=== PATIENT | female | born 1945 | race Caucasian/White ===

== ENCOUNTER 2016-11-08 15:15 | Outpatient (CLI) | payer MEDICARE, OTHER | END 2016-11-08 15:16 | DX: N30.01 Acute cystitis with hematuria (principal) ==

== ENCOUNTER 2017-01-13 08:26 | Outpatient (CLI) | payer MEDICARE, OTHER ==
[2017-01-13 13:53] LABS: BASOPHILS # (AUTO) 0.1 10^3/uL (0.0-0.1); BASOPHILS % (AUTO) 0.9 %; EOSINOPHILS # (AUTO) 0.3 10^3/uL (0.0-0.7); EOSINOPHILS % (AUTO) 5.4 %; HCT - HEMATOCRIT 42.8 % (37.0-47.0); HGB - HEMOGLOBIN 14.2 g/dL (12.0-16.0); LYMPHOCYTES # (AUTO) 1.8 10^3/uL (1.5-3.5); LYMPHOCYTES % (AUTO) 27.8 %; MEAN CORPUSCULAR HEMOGLOBIN 32.3 pg (27.0-31.0); MEAN CORPUSCULAR HGB CONC 33.1 g/dL (32.0-36.0); MEAN CORPUSCULAR VOLUME 97.4 fL (81.0-99.0); MEAN PLATELET VOLUME 10.2 fL (7.9-10.8); MONOCYTES # (AUTO) 0.6 10^3/uL (0.0-1.0); MONOCYTES % (AUTO) 9.2 %; NEUTROPHILS # (AUTO) 3.6 10^3/uL (1.5-6.6); NEUTROPHILS % (AUTO) 56.7 %; NUCLEATED RED BLOOD CELLS AUTO 0.1 /100WBC; RED BLOOD COUNT 4.39 10^6/uL (4.20-5.40); UNCORRECTED WHITE BLOOD COUNT 6.3 x10^3/uL; WHITE BLOOD COUNT 6.3 x10^3/uL (4.8-10.8)
[2017-01-13 14:11] LABS: ALBUMIN/GLOBULIN RATIO 1.3 (1.0-2.2); BILIRUBIN,TOTAL 0.6 mg/dL (0.2-1.0); BUN - BLOOD UREA NITROGEN 24 mg/dL (6-20); CALCIUM 9.2 mg/dL (8.5-10.3); CARBON DIOXIDE - CO2 27 mmol/L (21-32); CHLORIDE 103 mmol/L (101-111); CHOL/HDL RATIO 2.6 (<4.4); CHOLESTEROL 232 mg/dL; CREATININE 0.7 mg/dL (0.4-1.0); GFR - MDRD 82 (>89); GLUCOSE 80 mg/dL (70-100); HDL CHOLESTEROL 88 mg/dL; LDL/HDL RATIO 1.5 (<4.4); POTASSIUM 3.9 mmol/L (3.5-5.0); SODIUM 138 mmol/L (135-145); TRIGLYCERIDES 69 mg/dL; VLDL CHOLESTEROL 14 mg/dL
== END 2017-01-13 08:27 | disposition home or self-care (01) ==
LOC: LAB.R 08:26
PROVIDERS: ATTEND Nurse Practitioner Primary Care
DX: M81.0 Age-related osteoporosis without current pathological fracture (principal); Z79.899 Other long term (current) drug therapy
CPT/HCPCS: 80053; 80061; 84443; 85025

== ENCOUNTER 2017-01-25 13:02 | Outpatient (CLI) | payer MEDICARE, OTHER ==
--- NOTE | 2017-01-26 08:39 | DEXA Report ---
DEXA SCAN: 01/25/2017 CLINICAL INDICATION: Postmenopausal. TECHNIQUE: Dual energy x-ray absorptiometry (DXA) was performed on a [employer] system. Regions measured are the AP spine, femoral neck, and, if needed, forearm. COMPARISON: None. In accordance with the International Society for Clinical Densitometry (ISCD) guidelines, data from previous exams may be reanalyzed using current recommendations and techniques. This is done to allow a more accurate basis for comparison with the current study. FINDINGS: The data for the lumbar spine is as follows: REGION BMD (g/cm/cm) T-SCORE Z-SCORE L1 0.833 -2.5 -1.0 L2 0.952 -2.1 -0.6 L3 1.051 -1.2 0.3 L4 0.937 -2.2 -0.7 TOTAL 0.943 -2.0 -0.5 NOTE: All evaluable vertebrae are used for classification. The data for the hip is as follows: REGION BMD (g/cm/cm) T-SCORE Z-SCORE Neck 0.777 -1.9 -0.2 TOTAL 0.818 -1.5 0.0 NOTE: The femoral neck or total proximal femur, whichever is lowest, is used for classification. IMPRESSION: THE WHO CLASSIFICATION BASED ON THE INTERNATIONAL REFERENCE STANDARD IS OSTEOPENIA. THE FRACTURE RISK IS INCREASED. RECOMMENDATION: Patients with diagnosis of osteoporosis or osteopenia should have regular bone mineral density assessment. For those eligible for Medicare, routine testing is allowed once every 2 years. Testing frequency can be increased for patients who have rapidly progressing disease or for those who are receiving medical therapy to restore bone mass. COMMENT: World Health Organization (WHO) definitions for osteoporosis and osteopenia: NORMAL BMD: T-score at -1.0 or higher, fracture risk is low. OSTEOPENIA BMD: T-score between -1.0 and -2.5, fracture risk is increased. OSTEOPOROSIS BMD: T-score at -2.5 or lower, fracture risk high. National Osteoporosis Foundation recommends: 1. Obtain adequate dietary calcium (at least 1200 mg per day) and vitamin D (400 -800 international units per day). 2. Participate, as appropriate, in regular weightbearing and muscle- strengthening exercise. 3. Avoid tobacco use and reduce alcohol and caffeine intake. 4. For more detailed information see the website at www.NOF.org. MTDD
== END 2017-01-25 13:03 | disposition home or self-care (01) ==
LOC: DI 13:02
PROVIDERS: ATTEND Nurse Practitioner Primary Care
DX: M85.89 Other specified disorders of bone density and structure, multiple sites (principal); Z78.0 Asymptomatic menopausal state
CPT/HCPCS: 77080

== ENCOUNTER 2017-02-09 14:23 | Outpatient (CLI) | payer MEDICARE, OTHER ==
--- NOTE | 2017-02-10 20:10 | Mammography Report ---
DIGITAL SCREENING MAMMOGRAM: 02/09/2017 CLINICAL INDICATION: A 71-year-old nulliparous patient with personal history of right breast cancer, status post lumpectomy and radiation therapy. COMPARISON: 11/2014, 11/2013, 05/2013, 10/2012, 03/2012, 09/2011, 02/2011, 12/2010 TECHNIQUE: Routine CC and MLO projections were obtained of the breasts. FINDINGS: The breasts again demonstrate heterogeneously dense fibroglandular parenchyma bilaterally. Postoperative and post-treatment changes in the right breast are stable. Coarse and punctate, typi lo benign calcifications are present. No suspicious masses, clustered microcalcifications, or reg ions of architectural distortion are identified. IMPRESSION: BENIGN FINDINGS. RECOMMENDATION: Routine annual screening unless otherwise clinically indicated. BIRADS CATEGORY 2 - BENIGN FINDINGS. STANDARD QUALIFYING STATEMENTS 1. This examination was reviewed with the aid of Computer-Aided Detection (CAD). 2. A negative or benign imaging report should not delay biopsy if clinically suspicious findings are present. Consider surgical consultation if warranted. More than 5% of cancers are not identified by i maging. 3. Dense breasts may obscure an underlying neoplasm. JOB #: [id number] EXT JOB #:[id number]
== END 2017-02-09 14:24 | disposition home or self-care (01) ==
LOC: DI 14:23
PROVIDERS: ATTEND Nurse Practitioner Primary Care
DX: Z12.31 Encounter for screening mammogram for malignant neoplasm of breast (principal); Z85.3 Personal history of malignant neoplasm of breast
CPT/HCPCS: 77067

== ENCOUNTER 2017-10-08 11:18 | Emergency (ER) | payer MEDICARE, OTHER ==
[2017-10-08] MEDS ORDERED: oxyCODONE 5 MG TABLET PO STA (11:42)
--- NOTE | 2017-10-08 12:12 | ED Physician Documentation ---
PD HPI UPPER EXT INJURY - Stated complaint Stated Complaint: GLF/R WRIST INJ - Chief complaint Chief Complaint: Ext Problem - History obtained from History obtained from: Patient - History of Present Illness Location: Right, Wrist Type of injury: Fall Timing - onset: Today Timing - details: Abrupt onset, Still present Improved by: No: Rest Worsened by: Moving, Palpating Associated symptoms: Swelling. No: Weakness, Numbness Contributing factors: No: Prior ortho surgery Similar symptoms before: Has not had sx before Recently seen: Not recently seen Review of Systems Skin: reports: Abrasion (s) (forearm and ulnar side wrist, superficial). denies : Laceration (s) Neurologic: denies: Focal weakness, Numbness, Headache, Head injury PD PAST MEDICAL HISTORY - Past Medical History Past Medical History: Yes Cardiovascular: Murmur Respiratory: Sleep apnea Endocrine/Autoimmune: HyPOthyroidism GI: None : None HEENT: None Psych: Depression, Anxiety Musculoskeletal: Osteoarthritis, Osteoporosis, Osteopenia, Chronic back pain Derm: None - Past Surgical History Past Surgical History: Yes General: Other Ortho: Arthroscopic surgery, Other HEENT: Tonsil/Adenoidectomy - Present Medications Home Medications: Ambulatory Orders Medication Instructions Recorded Confirmed Naproxen [Aleve] 220 mg PO BID 11/27/13 06/18/15 Levothyroxine [Synthroid] 50 mcg PO QDAC 06/16/15 06/18/15 lamoTRIgine [LaMICtal] 12 mg PO DAILY 06/16/15 06/18/15 Aspirin 81 mg PO 10/08/17 HYDROcod/ACETAM 5/325 [[place] 5/325] 1 tab PO Q6H PRN #15 tablet 10/08/17 - Allergies Allergies/Adverse Reactions: Allergies Allergy/AdvReac Type Severity Reaction Status Date / Time acetaminophen AdvReac Mild Headache Verified 10/08/17 11:29 - Social History Does the pt smoke?: No Smoking Status: Never smoker Does the pt drink ETOH?: No Does the pt have substance abuse?: No - Immunizations Immunizations are current?: Yes PD ED PE NORMAL - Vitals Vital signs reviewed: Yes - General General: Alert and oriented X 3, Well developed/nourished - HEENT HEENT: Atraumatic - Neck Neck: Supple, no meningeal sign, No bony TTP - Cardiac Cardiac: RRR, No murmur - Respiratory Respiratory: Clear bilaterally - Abdomen Abdomen: Soft, Non tender - Back Back: No CVA TTP, No spinal TTP - Derm Derm: Normal color, Warm and dry - Extremities Extremities: Other (right wrist with swelling and tenderness, slight dorsal deformity. superficial abrasion ulnar side wrist and forearm. CLeansed. ) Results - Vitals Vitals: Oxygen O2 Source Room air - Rads (name of study) right wrist Radiology: Prelim report reviewed (distal radius fracture with some dorsal angulation. ) Procedures - Splint (location) wrist Splint applied by: Physician Type of splint: Fiberglass, Sugar tong Other: Patient tolerated well, No complications, Neurovascular intact, Sling provided PD MEDICAL DECISION MAKING - ED course Complexity details: reviewed results, re-evaluated patient (hematoma block with Marcaine provided significant relief of the pain. Comfortable with sitting and splinting. Able to do slight reduction volarly as applied splint. ), considered differential, d/w patient, d/w [facility] consultant (Dr. Brown - advised just splint and refer to office. ) Departure - Departure Disposition: 01 Home, Self Care Clinical Impression: Fall from slip, trip, or stumble Qualifiers: Encounter type: initial encounter Qualified Code(s): W01.0XXA - Fall on same level from slipping, tripping and stumbling without subsequent striking against object, initial encounter Wrist fracture Qualifiers: Encounter type: initial encounter Fracture type: closed Laterality: right Qualified Code(s): S62.101A - Fracture of unspecified carpal bone, right wrist, initial encounter for closed fracture Condition: Stable Record reviewed to determine appropriate education?: Yes Instructions: ED Fx Colles Wrist Redu Requ Follow-Up: Alexander Cuba MD [Primary Care Provider] - Johnie Yu MD [Provider Admit Priv/Credential] - Prescriptions: HYDROcod/ACETAM 5/325 [[place] 5/325] 1 tab PO Q6H PRN #15 tablet PRN Reason: Pain Comments: Keep the right wrist splint on and supported and use the sling for elevating the wrist. Keep her propped up on a pillow and ice periodically to help reduce swelling as well. It will likely need a little more reduction at the time of casting. The orthopedist will do this in their office on follow-up. We initially splint fractures like this because it will likely have some swelling we do not want the cast to be too tight. Call Monday for an appointment with orthopedics and likely they will see her at the end of the week and change this to a cast and talked to her about further care. I do not think it needs surgery but it will depend a little bit on what the orthopedist thinks about that piece on the corner. Use Tylenol or ibuprofen if needed for pains. Add hydrocodone if needed for worse pain. Discharge Date/Time: 10/08/17 14:05
[2017-10-08] MEDS ORDERED: BUPIVACAINE 0.5% PF 30 ML VIAL SUBQ STA (12:18)
--- NOTE | 2017-10-08 12:20 | XRAY Report ---
EXAM: RIGHT WRIST RADIOGRAPHY EXAM DATE: 10/08/2017 12:03 PM. CLINICAL HISTORY: Fall injury. COMPARISON: None. TECHNIQUE: 4 views. FINDINGS: Bones: Acute transverse fracture distal right radial metaphysis with marked dorsal angulation. There is also a minimally displaced oblique fracture through the base of the radial styloid. There is a tin y avulsion fracture at the tip of the volar styloid. Carpal bones appear intact. Nondisplaced transve rse fracture through the base of the right fifth metacarpal. Diffuse osteopenia. Joints: Moderate narrowing and osteophyte formation at the first carpal metacarpal joint. Soft Tissues: Normal. No soft tissue swelling. IMPRESSION: 1. Transverse fracture distal right radial metaphysis with marked dorsal angulation. There is also a minimally displaced oblique fracture through the base of the radial styloid. 2. Tiny avulsion fracture from the tip of the ulnar styloid. 3. Nondisplaced transverse fracture through the base of the right fifth metacarpal. 4. Diffuse osteopenia. 5. Moderate osteoarthritis at the right first carpometacarpal joint. [facility] Referring Provider Line: [phone] SITE ID: [id number]
[2017-10-08] MEDS ORDERED: ONDANSETRON ODT 4 MG TABLET TL STA (12:28)
[2017-10-08] MEDS ORDERED: KETOROLAC 60 MG/2 ML VIAL IM STA (12:28)
[2017-10-08] MEDS ORDERED: HYDROmorphone 1 MG/ML SYRINGE IM STA (12:28)
[2017-10-08] MEDS ORDERED: BUPIVACAINE 0.5% PF 10 ML VIAL SUBQ STA (12:28)
[2017-10-08 14:13] VITALS: BP 150/70
== END 2017-10-08 14:05 | disposition home or self-care (01) ==
LOC: ED 11:18
DX: S62.101A Fracture of unspecified carpal bone, right wrist, initial encounter for closed fracture (principal); W01.0XXA Fall on same level from slipping, tripping and stumbling without subsequent striking against object, initial encounter; E03.9 Hypothyroidism, unspecified; M85.80 Other specified disorders of bone density and structure, unspecified site
CPT/HCPCS: 29105; 73110; 96372; 99283; A9270; J1170; Q0162

== ENCOUNTER 2018-02-19 08:00 | Outpatient (CLI) | payer MEDICARE, OTHER ==
[2018-02-19 14:05] LABS: BASOPHILS # (AUTO) 0.1 10^3/uL (0.0-0.1); BASOPHILS % (AUTO) 1.3 %; EOSINOPHILS # (AUTO) 0.2 10^3/uL (0.0-0.7); EOSINOPHILS % (AUTO) 3.5 %; HGB - HEMOGLOBIN 14.2 g/dL (12.0-16.0); LYMPHOCYTES # (AUTO) 1.6 10^3/uL (1.5-3.5); LYMPHOCYTES % (AUTO) 30.2 %; MEAN CORPUSCULAR HEMOGLOBIN 32.1 pg (27.0-31.0); MEAN CORPUSCULAR HGB CONC 32.8 g/dL (32.0-36.0); MEAN CORPUSCULAR VOLUME 98.2 fL (81.0-99.0); MEAN PLATELET VOLUME 10.7 fL (7.9-10.8); MONOCYTES # (AUTO) 0.5 10^3/uL (0.0-1.0); MONOCYTES % (AUTO) 9.3 %; NEUTROPHILS # (AUTO) 2.9 10^3/uL (1.5-6.6); NEUTROPHILS % (AUTO) 55.7 %; PLT - PLATELET COUNT 246 10^3/uL (130-450); RED BLOOD COUNT 4.42 10^6/uL (4.20-5.40); RED CELL DISTRIBUTION WIDTH 13.5 % (12.0-15.0); WHITE BLOOD COUNT 5.2 x10^3/uL (4.8-10.8)
[2018-02-19 14:06] LABS: ALBUMIN 3.9 g/dL (3.2-5.5); ALBUMIN/GLOBULIN RATIO 1.3 (1.0-2.2); ALKALINE PHOSPHATASE 45 IU/L (42-121); ALT ALANINE AMINOTRANSFERASE 17 IU/L (10-60); AST ASPARTATE AMINOTRANSFERASE 24 IU/L (10-42); BUN - BLOOD UREA NITROGEN 25 mg/dL (6-20); CALCIUM 9.1 mg/dL (8.5-10.3); CARBON DIOXIDE - CO2 26 mmol/L (21-32); CHLORIDE 102 mmol/L (101-111); CHOL/HDL RATIO 2.6 (<4.4); CHOLESTEROL 228 mg/dL; CREATININE 0.7 mg/dL (0.4-1.0); GFR - MDRD 82 (>89); GLUCOSE 84 mg/dL (70-100); HDL CHOLESTEROL 87 mg/dL; LDL CHOLESTEROL,CALCULATED 130 mg/dL; LDL/HDL RATIO 1.5 (<4.4); SODIUM 137 mmol/L (135-145); TOTAL PROTEIN 6.9 g/dL (6.7-8.2); VLDL CHOLESTEROL 11 mg/dL
== END 2018-02-19 08:01 | disposition home or self-care (01) ==
LOC: LAB.R 08:00
PROVIDERS: ATTEND Physician Assistant Medical
DX: M81.0 Age-related osteoporosis without current pathological fracture (principal); Z79.899 Other long term (current) drug therapy; F32.9 Major depressive disorder, single episode, unspecified; E03.9 Hypothyroidism, unspecified
CPT/HCPCS: 80053; 80061; 82306; 83721; 84443; 85025

== ENCOUNTER 2018-02-19 08:00 | Outpatient (CLI) | payer MEDICARE, OTHER | END 2018-02-19 08:01 | disposition home or self-care (01) | LOC: LAB.R 08:00 | PROVIDERS: ATTEND Physician Assistant Medical | DX: Z53.9 Procedure and treatment not carried out, unspecified reason (principal) | CPT/HCPCS: 80053; 80061; 82306; 83721; 84443; 85025 ==

== ENCOUNTER 2018-05-03 12:59 | Outpatient (CLI) | payer MEDICARE, OTHER ==
--- NOTE | 2018-05-07 15:47 | Mammography Report ---
Reason: BILAT SCREEN w EDEN Procedure Date: 05/03/2018 Accession Number: [id number] / [id number] Procedure: DENNIS - Screening Mammo w/[facility] CPT Code: FULL RESULT: EXAM: Screening Mammo w/[place] DATE: 05/03/2018 1:50 PM CLINICAL HISTORY: 72 year-old nulliparous female with personal history of breast cancer on the right status post lumpectomy and radiation. TECHNIQUE: Bilateral CC and MLO views were obtained. A cleavage view was also obtained COMPARISON: 02/09/2017, 12/02/2015, 12/04/2014, 12/06/2013. FINDINGS: The breasts demonstrate heterogeneously dense fibroglandular parenchyma bilaterally. Right breast postsurgical changes are stable. Large rodlike typically benign calcifications are seen in the left breast. No suspicious masses, clustered microcalcifications, or regions of architectural distortion are identified. IMPRESSION: Benign findings RECOMMENDATION: Routine annual screening unless otherwise clinically indicated. BIRADS CATEGORY 2: Benign findings STANDARD QUALIFYING STATEMENTS: 1. This examination was not reviewed with the aid of Computer-Aided Detection (CAD). 2. A negative or benign imaging report should not delay biopsy if clinically suspicious findings are present. Consider surgical consultation if warrented. More than 5% of cancers are not identified by imaging. 3. Dense breasts may obscure an underlying neoplasm. 4. This examination was reviewed with the aid of 3D breast imaging (tomosynthesis).
== END 2018-05-03 13:00 | disposition home or self-care (01) ==
LOC: DI 12:59
PROVIDERS: ATTEND Physician Assistant Medical
DX: Z12.31 Encounter for screening mammogram for malignant neoplasm of breast (principal); Z85.3 Personal history of malignant neoplasm of breast
CPT/HCPCS: 77063; 77067

== ENCOUNTER 2018-06-19 16:37 | Outpatient (CLI) | payer MEDICARE, OTHER ==
--- NOTE | 2018-06-20 09:41 | XRAY Report ---
Reason: CERVICAL DISC DISORDER/W/RADICULOPATHY,BACK PAIN Procedure Date: 06/19/2018 Accession Number: [id number] / [id number] Procedure: XR - SI Joints CPT Code: FULL RESULT: EXAM: SACROILIAC JOINT RADIOGRAPHY EXAM DATE: 06/19/2018 05:10 PM. CLINICAL HISTORY: Cervical disk disorder with radiculopathy, and back pain. COMPARISON: XR HIP UNILAT MIN 2 VIEW 08/21/2009 9:14 AM. TECHNIQUE: 3 views. FINDINGS: For findings of the lumbar spine, please refer to the separate report. Bones: Normal. No fracture or bone lesion. Joints: The sacroiliac joints are normal. Soft Tissues: Normal. IMPRESSION: Normal sacroiliac joint radiography. [facility]
--- NOTE | 2018-06-20 09:41 | XRAY Report ---
Reason: CERVICAL DISC DISORDER/W/RADICULOPATHY,BACK PAIN Procedure Date: 06/19/2018 Accession Number: [id number] / [id number] Procedure: XR - Lumbar Spine Complete CPT Code: FULL RESULT: EXAM: LUMBOSACRAL SPINE RADIOGRAPHY EXAM DATE: 06/19/2018 05:08 PM. CLINICAL HISTORY: Cervical disk disorder and radiculopathy, back pain. COMPARISONS: Lumbosacral spine 4 views 10/21/2009. TECHNIQUE: 4 views. FINDINGS: S-shaped lumbar scoliosis has progressed compared to 10/21/2009 in the form of an L2 centric dextroconvex scoliosis followed by L4 centric levoconvex scoliosis and severe associated degenerative changes. There is a lateral listhesis, 4 mm of L3 on L4, likely degenerative in nature. There is generally severe facet arthropathy of the lower lumbar spine. IMPRESSION: Interval progression of degenerative S-shaped scoliosis spine, severe. [facility]
--- NOTE | 2018-06-20 10:18 | XRAY Report ---
Reason: CERVICAL DISC DISORDER/W/RADICULOPATHY,BACK PAIN Procedure Date: 06/19/2018 Accession Number: [id number] / [id number] Procedure: XR - Cervical Spine Complete CPT Code: FULL RESULT: EXAM: CERVICAL SPINE RADIOGRAPHY EXAM DATE: 06/19/2018 05:11 PM. CLINICAL HISTORY: Cervical disk disorder with radiculopathy, back pain. COMPARISONS: None. TECHNIQUE: 5 views. FINDINGS: Alignment: Normal. No spondylolisthesis or scoliosis. Bones: The cervical vertebral bodies and posterior elements are well-visualized from the skull base through C7-T1. No fractures or bone lesions. Disks: There is moderate multilevel disk space narrowing most pronounced at C4-C5 and C5-C6. Facets: There is sclerosis of the lateral masses and facets which is most pronounced from C5 to C7. Neural Foramina: The neural foramina have bony patency bilaterally. Soft Tissues: Normal. No prevertebral soft tissue swelling. The visualized lung apices are clear. IMPRESSION: Degenerative changes as described. [facility]
== END 2018-06-19 16:38 | disposition home or self-care (01) ==
LOC: DI 16:37
PROVIDERS: ATTEND Physician Assistant Medical
DX: M50.31 Other cervical disc degeneration, high cervical region (principal); M47.9 Spondylosis, unspecified
CPT/HCPCS: 72050; 72110; 72202

== ENCOUNTER 2019-04-04 09:44 | Outpatient (CLI) | payer MEDICARE, OTHER ==
[2019-04-04 10:16] LABS: ALBUMIN/GLOBULIN RATIO 1.3 (1.0-2.2); BILIRUBIN,TOTAL 0.8 mg/dL (0.2-1.0); CREATININE 0.8 mg/dL (0.4-1.0)
[2019-04-04 12:48] LABS: THYROID STIMULATING HORMONE 1.61 uIU/mL (0.34-5.60)
[2019-04-04 12:51] LABS: FREE T4 (FREE THYROXINE) 1.15 ng/dL (0.58-1.64)
== END 2019-04-04 09:45 | disposition home or self-care (01) ==
LOC: LAB 09:44
PROVIDERS: ATTEND Physician Assistant
DX: E03.9 Hypothyroidism, unspecified (principal)
CPT/HCPCS: 36415; 80053; 84439; 84443

== ENCOUNTER 2019-04-12 10:21 | Outpatient (CLI) | payer MEDICARE, OTHER ==
--- NOTE | 2019-04-15 13:35 | DEXA Report ---
Reason: DISORDER OF BONE,UNSPECIFIED Procedure Date: 04/12/2019 Accession Number: [id number] / [id number] Procedure: DEX - Dexa Spine and/or Hip CPT Code: FULL RESULT: EXAM: Dexa Spine and/or Hip DATE: 04/12/2019 11:30 AM CLINICAL HISTORY: Follow-up osteopenia TECHNIQUE: Dual energy x-ray absorptiometry (DXA) was performed on a [employer]. Regions measured are the AP Spine, femoral neck, and if needed forearm. COMPARISON: 01/25/2017 In accordance with the International Society for Clinical Densitometry (ISCD) guidelines, data from previous exams may be reanalyzed using current recommendations and techniques. This is done to allow a more accurate basis for comparison with the current study. FINDINGS: The data for the lumbar spine is as follows: BMD (g/cm/cm) T-SCORE Z-SCORE REGION L1 0.790 -2.8 -1.3 L2 0.885 -2.6 -1.1 L3 1.092 -0.9 0.7 L4 0.938 -2.2 -0.6 TOTAL 0.929 -2.1 -0.5 NOTE: All evaluable vertebrae are used for classification The data for the hip is as follows: BMD (g/cm/cm) T-SCORE Z-SCORE REGION Neck 0.763 -2.0 -0.2 TOTAL 0.814 -1.5 0.1 NOTE: The femoral neck or total proximal femur, whichever is lowest, is used for classification. DXA RESULTS SUMMARY: Spine SCAN DATE AGE BMD CHANGE VS CHANGE VS PREVIOUS PREVIOUS % [birth year]12[birth year]2019 [age] 0.929 -0.014 -1.5 01/25/2017 [age] 0.943 * Denotes significant change at the 95% confidence level. Denotes dissimilar scan types or analysis methods. DXA RESULTS SUMMARY: Hip SCAN DATE [age]GE BMD CHANGE VS CHANGE VS PREVIOUS PREVIOUS % [birth year]2019 [age] 0.814 -0.004 -0.5 01/25/2017 [age] 0.818 * Denotes significant change at the 95% confidence level. Denotes dissimilar scan types or analysis methods. IMPRESSION: THE WHO CLASSIFICATION BASED ON THE INTERNATIONAL REFERENCE STANDARD IS OSTEOPENIA REFERENCE LUMBAR SPINE. THE FRACTURE RISK IS INCREASED. RECOMMENDATION: Patients with diagnosis of osteoporosis or osteopenia should have regular bone mineral density assessment. For those eligible for Medicare, routine testing is allowed once every 2 years. Testing frequency can be increased for patients who have rapidly progressing disease or for those who are receiving medical therapy to restore bone mass. COMMENT: World Health Organization (WHO) definitions for osteoporosis and osteopenia: NORMAL BMD: T-score at -1.0 or higher, fracture risk is low OSTEOPENIA BMD: T-score between -1.0 and -2.5, fracture risk is increased. OSTEOPOROSIS BMD: T-score at -2.5 or lower, fracture risk is high. National Osteoporosis Foundation recommends: 1. Obtain adequate dietary calcium (at least 1200 mg per day) and vitamin D (400-800 international units per day). 2. Participate, as appropriate, in regular weightbearing and muscle-strengthening exercise. 3. Avoid tobacco use and reduce alcohol and caffeine intake. 4. For more detailed information see the website at www.NOF.org.
== END 2019-04-12 10:22 | disposition home or self-care (01) ==
LOC: DI 10:21
PROVIDERS: ATTEND Physician Assistant
DX: M85.89 Other specified disorders of bone density and structure, multiple sites (principal)
CPT/HCPCS: 77080

== ENCOUNTER 2019-05-03 16:15 | Outpatient (CLI) | payer MEDICARE, OTHER ==
--- NOTE | 2019-05-03 17:02 | Mammography Report ---
Reason: SCREENING MAMMO Procedure Date: 05/03/2019 Accession Number: [id number] / [id number] Procedure: DENNIS - Screening Mammo w/Mike CPT Code: FULL RESULT: EXAM: Screening Mammo w/Mike DATE: 05/03/2019 4:39 PM CLINICAL HISTORY: Screening examination. Personal history of right breast cancer with lumpectomy in 2010 or 2011. TECHNIQUE: (B) - Bilateral CC and MLO views were obtained. COMPARISON: 05/03/2018, 02/09/2017, 12/03/2015 PARENCHYMAL PATTERN: (A) - The breasts demonstrate scattered fibroglandular densities bilaterally. FINDINGS: Stable long-standing treatment related posterior lateral hemisphere architectural distortion of the right breast. Otherwise, there are no suspicious masses, calcifications, or areas of distortion. IMPRESSION: Benign findings. BI-RADS category 2. RECOMMENDATION: (ANNUAL) - Recommend routine annual screening mammography. BI-RADS CATEGORY: (2) - Benign Findings. STANDARD QUALIFYING STATEMENTS: 1. This examination was not reviewed with the aid of Computer-Aided Detection (CAD). 2. A negative or benign imaging report should not preclude biopsy if clinically suspicious findings are present. 3. Dense breasts may obscure an underlying neoplasm. 4. This examination was reviewed with the aid of 3D breast imaging (tomosynthesis).
== END 2019-05-03 16:16 | disposition home or self-care (01) ==
LOC: DI 16:15
PROVIDERS: ATTEND Physician Assistant
DX: Z12.31 Encounter for screening mammogram for malignant neoplasm of breast (principal); Z08 Encounter for follow-up examination after completed treatment for malignant neoplasm; Z85.3 Personal history of malignant neoplasm of breast
CPT/HCPCS: 77063; 77067

== ENCOUNTER 2019-09-02 10:30 | Emergency (ER) | payer MEDICARE, OTHER ==
[2019-09-02 10:36] VITALS: BP 129/74
[2019-09-02 11:04] LABS: BILIRUBIN,URINE NEGATIVE (NEGATIVE); GLUCOSE, URINE (UA) NEGATIVE (NEGATIVE)
[2019-09-02 11:05] LABS: CLARITY,URINE CLOUDY (CLEAR)
[2019-09-02 11:12] LABS: BACTERIA,URINE Few /HPF (None Seen); SQUAMOUS EPITHELIAL CELL,UR FEW Squamous (<= Few)
--- NOTE | 2019-09-02 12:13 | ED Physician Documentation ---
History of Present Illness - Stated complaint Stated Complaint: FEMALE - Chief complaint Chief Complaint: UTI - Additonal information Additional information: This is a 73-year-old female who presents with urgency, dysuria, and foul-smelli ng urine for the last 4 days. She has a slight amount of suprapubic discomfort that comes and goes. No flank pain, no fever. She rarely gets UTIs. No vomiting, no diarrhea.She otherwise has been feeling well. She has been taking Azo with relief of her symptoms. Review of Systems Constitutional: denies: Fever : reports: Dysuria, Frequency, Hesitancy PD PAST MEDICAL HISTORY - Past Medical History Past Medical History: Yes Cardiovascular: Murmur Respiratory: Sleep apnea Endocrine/Autoimmune: HyPOthyroidism GI: None : None HEENT: None Psych: Depression, Anxiety Musculoskeletal: Osteoarthritis, Osteoporosis, Osteopenia, Chronic back pain Derm: None - Past Surgical History Past Surgical History: Yes General: Other Ortho: Arthroscopic surgery, Other HEENT: Tonsil/Adenoidectomy - Present Medications Home Medications: Ambulatory Orders Medication Instructions Recorded Confirmed Naproxen [Aleve] 220 mg PO BID 11/27/13 06/18/15 Levothyroxine [Synthroid] 50 mcg PO QDAC 06/16/15 06/18/15 lamoTRIgine [LaMICtal] 12 mg PO DAILY 06/16/15 06/18/15 Aspirin 81 mg PO 10/08/17 HYDROcod/ACETAM 5/325 [[place] 5/325] 1 tab PO Q6H PRN #15 tablet 10/08/17 Cephalexin [Keflex] 500 mg PO Q6H 5 Days #20 capsule 09/02/19 - Allergies Allergies/Adverse Reactions: Allergies Allergy/AdvReac Type Severity Reaction Status Date / Time acetaminophen AdvReac Mild Headache Verified 09/02/19 10:32 - Social History Does the pt smoke?: No Smoking Status: Never smoker Does the pt drink ETOH?: No Does the pt have substance abuse?: No - Immunizations Immunizations are current?: Yes PD ED PE NORMAL - Vitals Vital signs reviewed: Yes - General General: Alert and oriented X 3, No acute distress - HEENT HEENT: PERRL - Neck Neck: Supple, no meningeal sign - Cardiac Cardiac: RRR, No murmur - Respiratory Respiratory: Clear bilaterally - Abdomen Abdomen: Soft, Non tender, Non distended - Derm Derm: Warm and dry - Neuro Neuro: Alert and oriented X 3 - Psych Psych: Normal mood, Normal affect Results - Vitals Vitals: Oxygen O2 Source Room air - Labs Labs: Microbiology 09/02/19 10:55 Urine Culture - Preliminary Urine,Random Escherichia Coli Laboratory Tests 09/02/19 10:55 Urine Color ORANGE Urine Clarity CLOUDY Urine pH Ur Specific [place] Urine Protein Urine Glucose (UA) NEGATIVE Urine Ketones Urine Occult Blood Urine Nitrite Urine Bilirubin NEGATIVE Urine Urobilinogen Ur Leukocyte Esterase Urine RBC 11-25 H Urine WBC >25 H Ur Squamous Epith Cells FEW Squamous Urine Bacteria Few Ur Microscopic Review INDICATED Urine Culture Comments INDICATED PD MEDICAL DECISION MAKING - ED course ED course: Pt has UTI symptoms, no signs of pyelonephritis or other more serious illness or complications. UA is consistent with UTI. I prescribed keflex and reviewed return precautions and pt was discharged in very good condition. Departure - Departure Disposition: 01 Home, Self Care Clinical Impression: UTI (urinary tract infection) Qualifiers: Urinary tract infection type: acute cystitis Hematuria presence: without hematuria Qualified Code(s): N30.00 - Acute cystitis without hematuria Condition: Good Instructions: ED UTI Cystitis Female Follow-Up: Thuy Velasquez PA [Primary Care Provider] - As Needed Prescriptions: Cephalexin [Keflex] 500 mg PO Q6H 5 Days #20 capsule Comments: If you are developing flank pain, fever despite the antibiotic, or other concerning symptoms, return to the emergency department Discharge Date/Time: 09/02/19 12:39
[2019-09-02] MEDS ORDERED: cephALEXin 250 MG CAPSULE PO STA (12:30)
== END 2019-09-02 12:39 | disposition home or self-care (01) ==
LOC: ED 10:30
DX: N30.00 Acute cystitis without hematuria (principal)
CPT/HCPCS: 81001; 87086; 87181; 99283; 99284; A9270; 81003

== ENCOUNTER 2020-05-03 10:01 | Emergency (ER) | payer MEDICARE, OTHER ==
[2020-05-03 11:31] LABS: BILIRUBIN,URINE NEGATIVE (NEGATIVE); GLUCOSE, URINE (UA) NEGATIVE (NEGATIVE); KETONES,URINE (UA) NEGATIVE (NEGATIVE); LEUKOCYTE ESTERASE, URINE MODERATE (NEGATIVE); NITRITE,URINE NEGATIVE (NEGATIVE); OCCULT BLOOD,URINE MODERATE (NEGATIVE); PH,URINE 6.5 PH (5.0-7.5); PROTEIN,URINE TRACE mg/dL (NEGATIVE); UROBILINOGEN,URINE 0.2 (NORMAL) E.U./dL (NORMAL)
[2020-05-03 11:55] LABS: CLARITY,URINE SL. CLOUDY (CLEAR)
[2020-05-03] MEDS ORDERED: SULFAMETH/TRIMETH DS 800/160 MG TABLET PO STA (11:59)
--- NOTE | 2020-05-03 12:02 | ED Physician Documentation ---
History of Present Illness - Stated complaint Stated Complaint: FEMALE - Chief complaint Chief Complaint: UTI - History obtained from History obtained from: Patient - Additonal information Additional information: Patient comes emergency department complaining of dysuria and frequency since last night. Patient states she has had many urinary tract infections before and this feels just the same. No fevers or chills. No vomiting. No back pain. No other complaints at this time. Review of Systems Ten Systems: 10 systems reviewed and negative Constitutional: reports: Reviewed and negative Eyes: reports: Reviewed and negative Ears: reports: Reviewed and negative Nose: reports: Reviewed and negative Throat: reports: Reviewed and negative Cardiac: reports: Reviewed and negative Respiratory: reports: Reviewed and negative GI: reports: Reviewed and negative. denies: Abdominal Pain, Nausea, Vomiting : reports: Dysuria, Frequency Skin: reports: Reviewed and negative Musculoskeletal: reports: Reviewed and negative. denies: Back pain Neurologic: reports: Reviewed and negative Psychiatric: reports: Reviewed and negative Endocrine: reports: Reviewed and negative Immunocompromised: reports: Reviewed and negative PD PAST MEDICAL HISTORY - Past Medical History Past Medical History: No Cardiovascular: Murmur Respiratory: None Neuro: None Endocrine/Autoimmune: HyPOthyroidism GI: None : None HEENT: None Psych: Depression, Anxiety Musculoskeletal: Osteoarthritis, Osteoporosis, Osteopenia, Chronic back pain Derm: None - Past Surgical History Past Surgical History: Yes General: Other Ortho: Arthroscopic surgery, Other HEENT: Tonsil/Adenoidectomy - Present Medications Home Medications: Ambulatory Orders Medication Instructions Recorded Confirmed Naproxen [Aleve] 220 mg PO BID 11/27/13 06/18/15 Levothyroxine [Synthroid] 50 mcg PO QDAC 06/16/15 06/18/15 lamoTRIgine [LaMICtal] 12 mg PO DAILY 06/16/15 06/18/15 Aspirin 81 mg PO 10/08/17 HYDROcod/ACETAM 5/325 [Hollis 5/325] 1 tab PO Q6H PRN #15 tablet 10/08/17 Cephalexin [Keflex] 500 mg PO Q6H 5 Days #20 capsule 09/02/19 Phenazopyridine HCl [Pyridium] 200 mg PO TID PRN #6 tablet 05/03/20 Sulfamethox/Trimeth 800/160 1 each PO BID #14 tablet 05/03/20 [Bactrim Ds 800/160] - Allergies Allergies/Adverse Reactions: Allergies Allergy/AdvReac Type Severity Reaction Status Date / Time acetaminophen AdvReac Mild Headache Verified 05/03/20 10:24 - Social History Does the pt smoke?: No Smoking Status: Never smoker Does the pt drink ETOH?: Yes Does the pt have substance abuse?: No - Immunizations Immunizations are current?: Yes PD ED PE NORMAL - Vitals Vital signs reviewed: Yes - General General: Alert and oriented X 3, No acute distress - HEENT HEENT: Atraumatic, PERRL, EOMI, Moist mucous membranes - Neck Neck: Supple, no meningeal sign - Cardiac Cardiac: RRR, No murmur - Respiratory Respiratory: No respiratory distress, Clear bilaterally - Abdomen Abdomen: Soft, Non tender, Non distended - Back Back: No CVA TTP - Derm Derm: Warm and dry - Extremities Extremities: No deformity - Neuro Neuro: Alert and oriented X 3 - Psych Psych: Normal mood, Normal affect Results - Vitals Vitals: Vital Signs - 24 hr 05/03/20 05/03/20 10:18 11:35 Temperature 36.6 C 36.7 C Heart Rate 80 83 Respiratory 18 16 Rate Blood Pressure 126/75 143/78 H O2 Saturation 99 98 Oxygen O2 Source Room air - Labs Labs: Laboratory Tests 05/03/20 10:53 Urine Color YELLOW Urine Clarity SL. CLOUDY Urine pH 6.5 Ur Specific [place] 1.015 Urine Protein TRACE Urine Glucose (UA) NEGATIVE Urine Ketones NEGATIVE Urine Occult Blood MODERATE H Urine Nitrite NEGATIVE Urine Bilirubin NEGATIVE Urine Urobilinogen 0.2 (NORMAL) Ur Leukocyte Esterase MODERATE H Ur Microscopic Review INDICATED Urine Culture Comments Not Reportable PD MEDICAL DECISION MAKING - ED course Complexity details: reviewed results, re-evaluated patient, considered differential, d/w patient ED course: Patient was treated with antibiotics in the emergency department for UTI. She was advised to follow-up with her primary care physician as needed. Departure - Departure Disposition: 01 Home, Self Care Clinical Impression: UTI (urinary tract infection) Qualifiers: Urinary tract infection type: acute cystitis Hematuria presence: without hematuria Qualified Code(s): N30.00 - Acute cystitis without hematuria Instructions: ED UTI Cystitis Female Prescriptions: Sulfamethox/Trimeth 800/160 [Bactrim Ds 800/160] 1 each PO BID #14 tablet Phenazopyridine HCl [Pyridium] 200 mg PO TID PRN #6 tablet PRN Reason: dysuria
[2020-05-03 12:07] LABS: BACTERIA,URINE Rare /HPF (None Seen); SQUAMOUS EPITHELIAL CELL,UR FEW Squamous (<= Few)
[2020-05-03 12:23] VITALS: BP 117/75
== END 2020-05-03 13:00 | disposition home or self-care (01) ==
LOC: ED 10:01
DX: N30.00 Acute cystitis without hematuria (principal)
CPT/HCPCS: 81001; 81003; 87086; 87181; 99283

== ENCOUNTER 2020-07-20 14:53 | Outpatient (CLI) | payer MEDICARE, OTHER ==
--- NOTE | 2020-07-21 09:54 | Mammography Report ---
BILATERAL DIGITAL SCREENING MAMMOGRAM 3D/2D: 07/20/2020 CLINICAL: Routine screening. Personal history of right breast cancer. Comparison is made to exams dated: 05/03/2019 mammogram, 05/03/2018 mammogram, 02/09/2017 mammogram, 12/02/2015 mammogram, 12/04/2014 mammogram, and 12/06/2013 mammogram - [facility]. The tis balta of both breasts is heterogeneously dense. This may lower the sensitivity of mammography. The right breast has post-operative findings. There is a possible irregular equal density focal asymmetry in the left breast at 3 o'clock middle de pth. This is more prominent with possible architectural distortion associated with the focal asymmet ry. There also are multiple linear large rodlike calcifications in the left breast superior lateral quadr ant anterior depth. These are more prominent and increased in number. No other significant masses, calcifications, or other findings are seen in either breast. IMPRESSION: INCOMPLETE: NEEDS ADDITIONAL IMAGING EVALUATION The possible irregular equal density focal asymmetry in the left breast at 3 o'clock middle depth is indeterminate. The multiple linear large rodlike calcifications in the left breast superior lateral quadrant anterio r depth resemble secretory calcifications with the more anterior calcifications demonstrating mild b ranching morphology, and are indeterminate. Further imaging evaluation is recommended with additional views of the left breast to include spot ma gnification views of the calcifications and possible ultrasound. This exam was interpreted at Station ID: [id number]. NOTE: For mammograms, a report in lay terms will be sent to the patient. Approximately 15% of breast malignancies will not be visualized mammographically. In the management of a palpable breast mass, a negative mammogram must not discourage biopsy of a clinically suspicious lesion. Electronically Signed By: Catarino Live M.D. aty/:07/20/2020 16:38:45 ACR BI-RADS Category 0: Incomplete 3340F PARENCHYMAL PATTERN: (D) - The breast(s) demonstrate(s) heterogeneously dense fibroglandular parenchy ma. BI-RADS CATEGORY: (0) - 0 Mammo and US [id number] Immediate follow-up LATERALITY: (L)
== END 2020-07-20 14:54 | disposition home or self-care (01) ==
LOC: DI.N 14:53
DX: Z12.31 Encounter for screening mammogram for malignant neoplasm of breast (principal); Z85.3 Personal history of malignant neoplasm of breast; R92.8 Other abnormal and inconclusive findings on diagnostic imaging of breast
CPT/HCPCS: 77067

== ENCOUNTER 2020-09-02 10:46 | Outpatient (CLI) | payer MEDICARE, OTHER ==
--- NOTE | 2020-09-02 14:58 | Ultrasound Report ---
LIMITED ULTRASOUND OF LEFT BREAST: 09/02/2020 CLINICAL: Patient returns today to evaluate a focal asymmetry in the left breast. Comparison is made to exams dated: 09/02/2020 mammogram, 07/20/2020 mammogram, 05/03/2019 mammogram, mammogram, 02/09/2017 mammogram, and 12/02/2015 mammogram - . Real-time ultrasound of the left breast 2-3 o'clock region was performed on the area of interest. No discrete cystic or solid mass lesion identified in the area of mammographic abnormality. IMPRESSION: NEGATIVE There is no sonographic evidence of malignancy. There are no abnormalities seen in the left breast to correspond with the mammography findings at 2-3 o'clock. A 1 year screening mammogram is recommended. This exam was interpreted at Station ID: [id number]. Electronically Signed By: Jose Alberto Aldana M.D. ddp/:09/02/2020 11:56:38 Ultrasound BI-RADS: 1 Negative BI-RADS CATEGORY: (1) - 1 RECOMMENDATION: (ANNUAL) - Recommend routine annual screening mammography. [id number] 1 year screening LATERALITY: (B)
--- NOTE | 2020-09-02 14:58 | Mammography Report ---
UNILATERAL LEFT DIGITAL DIAGNOSTIC MAMMOGRAM 3D/2D: 09/02/2020 CLINICAL: Patient returns today to evaluate a focal asymmetry in the left breast. Additional evaluati on requested from prior study. Comparison is made to exams dated: 07/20/2020 mammogram, 05/03/2019 mammogram, 05/03/2018 mammogram, mammogram, 12/02/2015 mammogram, and 12/04/2014 mammogram - [facility]. The t issue of left breast is heterogeneously dense. This may lower the sensitivity of mammography. There is an irregular equal density global asymmetry with an indistinct margin in the left breast at 2 o'clock posterior depth. This is less prominent. There also are linear large rodlike calcifications in the left breast at 3 o'clock anterior depth. T hese are not significantly changed. No other significant masses or calcifications are seen in the breast. IMPRESSION: INCOMPLETE: NEEDS ADDITIONAL IMAGING EVALUATION The irregular equal density global asymmetry in the left breast at 2 o'clock posterior depth is indet erminate. An ultrasound is recommended. The linear large rodlike calcifications in the left breast at 3 o'clock anterior depth are consistent with secretory calcifications and are benign. Ultrasound will be performed immediately following the current exam. This exam was interpreted at Station ID: [id number]. NOTE: For mammograms, a report in lay terms will be sent to the patient. Approximately 15% of breast malignancies will not be visualized mammographically. In the management of a palpable breast mass, a negative mammogram must not discourage biopsy of a clinically suspicious lesion. Electronically Signed By: Jose Alberto Aldana M.D. ddjesus/:09/02/2020 11:19:01 ACR BI-RADS Category 0: Incomplete 3340F PARENCHYMAL PATTERN: (D) - The breast(s) demonstrate(s) heterogeneously dense fibroglandular parpower ma. BI-RADS CATEGORY: (0) - 0 Ultrasound [id number] Immediate follow-up LATERALITY: (B)
== END 2020-09-02 10:47 | disposition home or self-care (01) ==
LOC: DI 10:46
PROVIDERS: ATTEND Physician Assistant
DX: R92.2 Inconclusive mammogram (principal)